=== PATIENT | male | born 1975 | race Two or more races ===

== ENCOUNTER 2016-11-23 11:55 | Emergency (ER) | END 2016-11-23 20:00 | disposition home or self-care (01) | DX: G93.40 Encephalopathy, unspecified (principal); R40.2252 Coma scale, best verbal response, oriented, at arrival to emergency department; F10.120 Alcohol abuse with intoxication, uncomplicated; D64.9 Anemia, unspecified; D69.6 Thrombocytopenia, unspecified; R94.5 Abnormal results of liver function studies; R40.2362 Coma scale, best motor response, obeys commands, at arrival to emergency department; R40.2142 Coma scale, eyes open, spontaneous, at arrival to emergency department | CPT/HCPCS: 70450; 70486; 72125; 80053; 80306; 80307; 81001; 85025; 85610; 85730; Z7502 ==